=== PATIENT | female | born 1970 | race Hispanic/Latino ===

== ENCOUNTER → 2018-10-13 | Day surgery (SDC) | payer BC ==
[~2018-10-13] MED LIST: FENTANYL CITRATE/PF 100MCG/2 ML INJ ONE; HYOSCYAMINE 0.125 MG TAB ONE; HYOSCYAMINE SULFATE 0.5 MG/ML INJ ONE; LISINOPRIL10 MG PO; METFORMIN HCL850 MG PO; MIDAZOLAM HCL 2 MG/2 ML VIAL ONE; PROPOFOL IV EMULSION 10 MG/ML 50 ML VIAL ONE; SYNTHROID150 MCG PO
--- OUTSIDE RECORDS SUMMARY | 2018-10-13 08:28 | XMS REPORT | Summary of Care ---
Author Author [facility] [employer] [facility] Organization [facility] [facility] Address Unknown Phone Unavailable Encounter [facility](FIN) [id number] Date(s): 08/17/18 - 08/17/18 [facility] [employer] [facility]PER[facility] [address], [address] [place], [place] [address] [phone] Discharge Disposition: Home or Self Care Attending Physician: Reji Wellington MD Vital Signs Most recent to 1 oldest [Reference Range]: Height 160.02 cm (08/17/18 9:30 AM) Blood Pressure 151/99 mmHg [90-140/60-90 mmHg] *HI* (08/17/18 9:30 AM) Peripheral Pulse 94 bpm Rate [60-100 bpm] (08/17/18 9:30 AM) Weight 83.636 kg (08/17/18 9:30 AM) Body Mass Index 32.66 m2 (08/17/18 9:30 AM) Problem List Condition Effective Dates Status Health Status Informant (Confirmed) 09/17/01 - 05/27/02 Resolved (Confirmed) 07/19/90 - 03/22/91 Resolved (Confirmed) 08/25/97 - 04/14/98 Resolved Allergies, Adverse Reactions, Alerts Substance Reaction Severity Status Cipro Active Medications clobetasol topical 0.05% ointment 1 appl, TOP, BID, X 14 day, # 30 gm, 1 Refill(s), Pharmacy: [facility] [id number] Start Date: 08/18/18 Stop Date: 09/15/18 Status: Ordered lisinopril PO, Daily, 0 Refill(s) Start Date: 08/17/18 Status: Ordered metFORMIN PO, 0 Refill(s) Start Date: 08/17/18 Status: Ordered Synthroid PO, Daily, 0 Refill(s) Start Date: 08/17/18 Status: Ordered Results No data available for this section Immunizations No data available for this section Procedures Procedure Date Related Diagnosis Body Site Status Appendectomy Completed Removal of gallstones from gallbladder Completed Social History Social History Type Response Smoking Status Never smoker; Previous treatment: None; Exposure to Tobacco Smoke None; Cigarette Smoking Last 365 Days No; Reg Smoking Cessation Counseling No entered on: 08/17/18 Assessment and Plan No data available for this section
--- OUTSIDE RECORDS SUMMARY | 2018-10-13 08:28 | XMS REPORT | Continuity of Care Document ---
Author Author [facility] Interface Address Unknown Phone Unavailable Problems Problem Status Onset Date Classification Date Reported Comments Source Resolved 09/17/2001 Problem 08/19/2018 [facility] Medications Medication Details Route Status Patient Instructions Ordering Provider Order Date Source Clobetasol Propionate 0.0005 MG/MG Topical Ointment 1 appl, TOP, BID, X 14 day, # 30 gm, 1 Refill(s), Pharmacy: [facility] [id number] Active 08/18/2018 [facility] Metformin PO, 0 Refill(s) Active 08/17/2018 [facility] Lisinopril PO, Daily, 0 Refill(s) Active 08/17/2018 [facility] Synthroid PO, Daily, 0 Refill(s) Active 08/17/2018 [facility] Allergies, Adverse Reactions, Alerts Substance Category Reaction Severity Reaction type Status Date Reported Comments Source Cipro Assertion Drug allergy Active [facility] Immunizations Immunization Date Given Site Status Last Updated Comments Source Results Order Name Results Value Reference Range Date Interpretation Comments Source Vital Signs Vital Sign Value Date Comments Source Systolic (mm Hg) 151 08/17/2018 [facility] Diastolic (mm Hg) 99 08/17/2018 [facility] Weight 83.636 08/17/2018 [facility] Height 160.02 cm 08/17/2018 [facility] Heart Rate 94 08/17/2018 [facility] BMI Calculated 32.66 08/17/2018 [facility] Encounters Location Location Details Encounter Type Encounter Number Reason For Visit Attending Provider ADM Date DC Date Status Source Outpatient [id number] REJI THEODORE 08/17/2018 [facility] Outpatient [id number] Reji Olivares Jr 08/17/2018 08/18/2018 [facility] Procedures Procedure Code Date Perfomer Comments Source Appendectomy [id number] [facility] Removal of gallstones from gallbladder [id number] [facility]
[2018-10-13 13:30] VITALS: BP 147/89
--- NOTE | 2018-10-13 14:29 | Operative Report ---
DATE OF PROCEDURE: 10/13/2018 SURGEON: Nakul Owen MD PROCEDURES: Colonoscopy and polypectomy. INDICATIONS FOR COLONOSCOPY: Colorectal cancer screening, and rectal pain. MEDICATION: The patient was done under MAC, please see anesthesiologist's note. PROCEDURE IN DETAIL: With the patient in left lateral decubitus position, the flexible fiberoptic Olympus colonoscope was inserted into the rectum with ease and advanced all the way to the cecum. Mucosa overlying the cecum appeared to be within normal limits. The scope was then withdrawn slowly and mucosa overlying the ascending and the transverse as well as the descending appeared to be within normal limits. Diverticular disease was noted in the sigmoid colon. One polyp was snared and one polyp was hot biopsied from the sigmoid colon. Two polyps were hot biopsied from the rectum. The scope was then retroflexed into the distal rectum and small internal hemorrhoids were noted, none of which was actively bleeding. The scope was then straightened out, it was subsequently withdrawn. The patient tolerated the procedure well. IMPRESSION: 1. Diverticulosis. 2. Sigmoid colon polyps x2, one hot biopsied and one snared. 3. Rectal polyps x2, hot biopsied. 4. Internal hemorrhoids, none actively bleeding. PLAN: Follow up histology. Initiate high-fiber, low-fat diet. Initiate high-fiber supplement and then Anusol HC suppositories b.i.d. x10 days, then p.r.n. VSL#3 one p.o. daily. The patient might benefit from a followup colonoscopy in 3 years. Nakul Owen MD [facility] [place] /[id number] cc: Robin Du MD
== END | disposition home or self-care (01) ==
LOC: OR 08:25
PROVIDERS: ATTEND Internal Medicine Gastroenterology
DX: K62.89 Other specified diseases of anus and rectum (principal); K63.5 Polyp of colon; K62.1 Rectal polyp; K57.30 Diverticulosis of large intestine without perforation or abscess without bleeding; K64.8 Other hemorrhoids; K92.89 Other specified diseases of the digestive system; I10 Essential (primary) hypertension; E11.9 Type 2 diabetes mellitus without complications; E03.9 Hypothyroidism, unspecified; Z88.1 Allergy status to other antibiotic agents; Z01.810 Encounter for preprocedural cardiovascular examination; Z79.84 Long term (current) use of oral hypoglycemic drugs; Z68.35 Body mass index [BMI] 35.0-35.9, adult
CPT/HCPCS: 36415; 45384; 45385; 81025; 82948; 93005; J1980; J2250; J2704